=== PATIENT | male | born 1990 | race Caucasian/White ===

== ENCOUNTER 2021-04-17 08:14 | Emergency (ER) | payer OTHER ==
[~2021-04-17] VITALS: Ht 188 cm; Wt 90.0 kg
[2021-04-17 09:54] VITALS: BP 157/75
[2021-04-17] MEDS ORDERED: NEOMY/BACITR/POLYMYXIN OINT PACKET. TP ONE (10:15)
[2021-04-17] MEDS ORDERED: DIPH,PERTUSS(ACELL),TET VAC/PF 0.5 ML SYRINGE. VAX IM ONE (10:15)
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
--- NOTE | 2021-04-17 12:51 | RAD ---
Exam performed: CT scan of the head and cervical spine without contrast. Date of Service:04/17/2021 Comparison:None available . Clinical History: Fall, blunt head injury Technique: Helical acquisitions are obtained from the foramen magnum to the vertex and through the ce rvical spine without IV contrast. Sagittal and coronal reformatted images are obtained and reviewed . CT head findings: The ventricles are midline without evidence of dilatation. Normal marc-white differentiation is main tained. There is no extra axial fluid collection, intraparenchymal hemorrhage or mass lesion. The v isualized portions of the orbits, paranasal sinuses and the mastoid air cells appear clear. The calv arium is intact. Impression: 1. No acute intracranial process detected. End impression CT cervical spine findings: Normal sagittal alignment is preserved. Craniocervical and C1-2 articulation appears preserved. The v ertebral body heights and intravertebral disc spaces are maintained. There is no liseth or retrolist hesis. There is no perching of facets No prevertebral soft tissue swelling is identified. There are n o fractures. No definite lymphadenopathy or masses are seen within the neck. The visualized thyroid and salivary glands appears preserved. Impression: No acute abnormality seen in the CT scan cervical spine. PQRS Compliance Statement: One or more of the following individualized dose reduction techniques were utilized for this examinat ion: 1. Automated exposure control 2. Adjustment of the mA and/or kV according to patient size 3. Use of iterative reconstruction technique Electronically signed by: Eva Chatterjee MD (04/17/2021 12:49 PM) [facility]
== END 2021-04-17 13:32 | disposition home or self-care (01) ==
LOC: ER 08:14 → EEVIPCON 08:14 → ER 13:32
DX: S01.01XA Laceration without foreign body of scalp, initial encounter (principal); Z88.0 Allergy status to penicillin; Y00.XXXA Assault by blunt object, initial encounter; Y93.89 Activity, other specified; Y92.148 Other place in prison as the place of occurrence of the external cause; Y99.8 Other external cause status
CPT/HCPCS: 70450; 72125; 99284-25